=== PATIENT | male | born 1945 | race Caucasian/White ===

== ENCOUNTER → 2016-12-08 | Outpatient (CLI) | payer OTHER ==
[~2016-12-08] MED LIST: LISINOPRIL10 MG PO
== END | disposition home or self-care (01) ==
LOC: NUC 09:00
DX: C79.51 Secondary malignant neoplasm of bone (principal)
CPT/HCPCS: 78306; A9503

== ENCOUNTER 2017-10-17 12:44 | Inpatient (IN) | payer OTHER ==
[~2017-10-17] VITALS: Ht 177.8 cm; Wt 80.1 kg
[~2017-10-17 12:44] MED LIST changes: +FUROSEMIDE20 MG PO; +XTANDI40 MG PO
[2017-10-17 14:34] LABS: BASOPHIL (%) 0.4 % (0-1); EOSINOPHIL (%) 0.6 % (0-5); HEMATOCRIT 30.7 % (38.0-50.0); HEMOGLOBIN 10.1 G/DL (12.5-16.6); IMMATURE GRANULOCYTE (%) 0.6 % (0.0-0.7); LYMPHOCYTE (%) 24.7 % (15-42); LYMPHOCYTE COUNT 1.2 K/uL (1.0-2.8); MCH 32.3 PG (29.0-34.0); MCHC 32.9 G/DL (30.0-36.0); MCV 98.1 FL (86-99); MONOCYTE (%) 10.4 % (3-12); MONOCYTE COUNT 0.5 K/uL (0-0.8); NEUTROPHIL (%) 63.3 % (45-76); NEUTROPHIL COUNT 3.1 K/uL (1.8-6.4); NRBC (%) 1.2 /100 WBC (0-0); PLATELET COUNT 249 K/uL (156-360); RBC DIS.WIDTH-CV 17.7 % (11.8-14.6); RBC DIS.WIDTH-SD 63.1 % (39-53); RED BLOOD COUNT 3.13 M/uL (4.00-5.50); WHITE BLOOD COUNT 4.9 K/uL (4.1-10.2)
[2017-10-17 14:45] LABS: ALBUMIN 3.1 g/dL (3.2-4.8); CHLORIDE 108 mEq/L (99-109); POTASSIUM 4.2 mEq/L (3.7-5.4); SODIUM 139 mEq/L (136-147)
[2017-10-17 14:48] LABS: TOTAL PROTEIN 5.1 g/dL (6.4-8.3)
[2017-10-17 14:50] LABS: TOTAL BILIRUBIN 1.3 mg/dL (0.0-1.0)
[2017-10-17 14:51] LABS: ALKALINE PHOSPHATASE 479 IU/L (3-129); CREATININE 0.8 mg/dL (0.6-1.3); GFR ESTIMATE (CALCULATED) > 59 mL/min/ (58.99-99999)
[2017-10-17 14:52] LABS: GLUCOSE 95 mg/dL (70-99); UREA NITROGEN (BUN) 19 mg/dL (9-23)
[2017-10-17 14:53] LABS: AST (GOT) 24 IU/L (2-34)
[2017-10-17 14:54] LABS: ALT (GPT) 11 IU/L (3-49)
[2017-10-17 14:57] LABS: TROP-I INTERPRETATION NEGATIVE; TROPONIN-I 0.03 ng/mL (0.0-0.30)
[2017-10-17] MEDS ORDERED: PRINIVIL5 MG PO (17:53)
[2017-10-17] MEDS ORDERED: ZYTIGA250 MG PO (17:56)
[2017-10-17] MEDS ORDERED: PREDNISONE5 MG PO (17:57)
[2017-10-17] MEDS ORDERED: VITAMIN C1000 MG PO (17:59)
[2017-10-17 19:28] VITALS: BP 131/70
[2017-10-17 20:06] LABS: MAGNESIUM 2.1 mg/dl (1.3-2.7)
[2017-10-17 20:11] LABS: HDL CHOLESTEROL 22 MG/DL (Desirable>=40); LDL CHOLESTEROL 46 mg/dL (Desirable<100); NON-HDL CHOLESTEROL 70 mg/dL (Desirable<160); TOTAL CHOLESTEROL 92 mg/dL (Desirable<200); TRIGLYCERIDES 120 MG/DL (Normal: <150)
[2017-10-18 01:12] LABS: TROP-I INTERPRETATION NEGATIVE; TROPONIN-I 0.04 ng/mL (0.0-0.30)
[2017-10-18 03:20] VITALS: BP 156/74
[2017-10-18 04:53] LABS: HEMATOCRIT 31.3 % (38.0-50.0); HEMOGLOBIN 10.1 G/DL (12.5-16.6); MCH 31.7 PG (29.0-34.0); MCHC 32.3 G/DL (30.0-36.0); MCV 98.1 FL (86-99); NRBC (%) 1.2 /100 WBC (0-0); PLATELET COUNT 249 K/uL (156-360); RBC DIS.WIDTH-CV 17.7 % (11.8-14.6); RBC DIS.WIDTH-SD 61.2 % (39-53); RED BLOOD COUNT 3.19 M/uL (4.00-5.50); WHITE BLOOD COUNT 4.8 K/uL (4.1-10.2)
[2017-10-18 05:22] LABS: TROP-I INTERPRETATION NEGATIVE; TROPONIN-I 0.05 ng/mL (0.0-0.30)
[2017-10-18 05:27] LABS: CHLORIDE 106 MEQ/L (99-109); CREATININE 0.9 MG/DL (0.6-1.3); GFR ESTIMATE (CALCULATED) > 59 mL/min/ (58.99-99999); GLUCOSE 123 mg/dL (70-99); SODIUM 142 MEQ/L (136-147); UREA NITROGEN (BUN) 21 mg/dL (9-23)
[2017-10-18 05:28] LABS: POTASSIUM 3.2 MEQ/L (3.7-5.4)
[2017-10-18 09:34] VITALS: BP 144/75
[2017-10-18 11:34] VITALS: BP 137/65
[2017-10-18 16:53] VITALS: BP 132/62
[2017-10-18 19:42] VITALS: BP 150/67
[2017-10-18 23:56] VITALS: BP 125/94
[2017-10-19 04:14] VITALS: BP 124/65
[2017-10-19 05:46] LABS: CHLORIDE 105 MEQ/L (99-109); CREATININE 0.8 MG/DL (0.6-1.3); GFR ESTIMATE (CALCULATED) > 59 mL/min/ (58.99-99999); GLUCOSE 109 mg/dL (70-99); MAGNESIUM 1.8 mg/dl (1.3-2.7); POTASSIUM 3.3 MEQ/L (3.7-5.4); SODIUM 144 MEQ/L (136-147); UREA NITROGEN (BUN) 18 mg/dL (9-23)
[2017-10-19] MEDS ORDERED: FUROSEMIDE80 MG PO (07:49)
[2017-10-19] MEDS ORDERED: LOPRESSOR25 MG PO (07:49)
[2017-10-19] MEDS ORDERED: K-DUR10 MEQ PO (07:49)
[2017-10-19 08:00] VITALS: BP 166/72
== END 2017-10-19 10:45 | disposition home or self-care (01) | DRG 292 ==
LOC: EME 12:44 → 4EAST 17:37 → EDOF 17:37 → ENRESERV 17:40 → 4EAST 19:25
PROVIDERS: Emergency Medicine; Hospitalist; Internal Medicine; Internal Medicine Cardiovascular Disease
DX: I50.21 Acute systolic (congestive) heart failure (principal); I48.91 Unspecified atrial fibrillation; C61 Malignant neoplasm of prostate; D64.81 Anemia due to antineoplastic chemotherapy; D63.0 Anemia in neoplastic disease; C79.51 Secondary malignant neoplasm of bone; I71.9 Aortic aneurysm of unspecified site, without rupture; I11.0 Hypertensive heart disease with heart failure; J98.11 Atelectasis; I27.20 Pulmonary hypertension, unspecified; K21.9 Gastro-esophageal reflux disease without esophagitis; J45.909 Unspecified asthma, uncomplicated; I42.0 Dilated cardiomyopathy; I25.10 Atherosclerotic heart disease of native coronary artery without angina pectoris; I34.0 Nonrheumatic mitral (valve) insufficiency; I08.0 Rheumatic disorders of both mitral and aortic valves; F12.90 Cannabis use, unspecified, uncomplicated; E87.6 Hypokalemia; G47.30 Sleep apnea, unspecified; Z85.46 Personal history of malignant neoplasm of prostate; Z80.0 Family history of malignant neoplasm of digestive organs
CPT/HCPCS: 36415; 71046; 71275; 80048; 80053; 80061; 83735; 83880; 84443; 84484; 85025; 85025 91; 85027; 93005; 93306; 93970; 99281; 99285; J1940; J7512

== ENCOUNTER → 2017-11-29 | Outpatient (CLI) | payer OTHER ==
[~2017-11-29] MED LIST changes: +FUROSEMIDE80 MG PO; +K-DUR10 MEQ PO; +LOPRESSOR25 MG PO; +PREDNISONE5 MG PO; +PRINIVIL5 MG PO; +VITAMIN C1000 MG PO; +ZYTIGA250 MG PO
== END | disposition home or self-care (01) ==
LOC: NUC 07:59
DX: C79.51 Secondary malignant neoplasm of bone (principal); R93.7 Abnormal findings on diagnostic imaging of other parts of musculoskeletal system
CPT/HCPCS: 78306; A9503